=== PATIENT | male | born 1950 | race Caucasian/White ===

== ENCOUNTER 2017-04-12 09:03 | Emergency (ER) | payer SELFPAY ==
[~2017-04-12] VITALS: Ht 175.3 cm; Wt 120.0 kg
[2017-04-12] MEDS ORDERED: PREDNISONE50 MG PO (09:39)
[2017-04-12] MEDS ORDERED: COLCHICINE0.6 M2 PO (09:39)
[2017-04-12 09:52] VITALS: BP 154/77
== END 2017-04-12 09:52 | disposition home or self-care (01) | DRG 554 ==
LOC: ED 09:03
DX: M10.9 Gout, unspecified (principal); M25.475 Effusion, left foot

== ENCOUNTER 2017-05-12 18:59 | Observation (INO) | payer BC ==
[~2017-05-12] VITALS: Ht 175.3 cm; Wt 159.0 kg
[~2017-05-12 18:59] MED LIST: COLCHICINE0.6 M2 PO; PREDNISONE50 MG PO
--- NOTE | 2017-05-12 19:18 | NUR ---
PT TAKEN STRAIGHT BACK TO ER ROOM 6
--- NOTE | 2017-05-12 19:19 | NUR ---
PT. WITH C/O HAVING A SYNCOPLE EPISODE X 2 1 TIME YESTERDAY AND 1 TIME TODAY. SKIN WARM AND DRY TO TOUCH, COLOR WNL, RESP. EVEN AND UNLABORED.
[2017-05-12 19:32] LABS: HEMATOCRIT 41.3 % (39.0-50.0); IMMATURE GRANULOCYTES 0.7 % (0.0-1.0); MEAN CELL VOLUME 97.6 fL CALC (80.0-100.0); MEAN CORPUSCULAR HGB 33.1 pG CALC (26.0-32.0); MEAN CORPUSCULAR HGB CONC 33.9 g/L CALC (32.0-36.0); NEUT# 5.87 thou/uL (1.82-7.42); RED BLOOD COUNT 4.23 mill/uL (4.70-6.10); RED CELL DISTRI WIDTH 13.2 % (11.5-15.5)
[2017-05-12 19:34] LABS: URINE BILIRUBIN - DIPSTICK NEGATIVE (NEGATIVE); URINE BLOOD DIPSTICK NEGATIVE (NEGATIVE); URINE COLOR YELLOW; URINE GLUCOSE - DIPSTICK NEGATIVE (NEGATIVE); URINE KETONE NEGATIVE (NEGATIVE); URINE LEUK ESTERASE NEGATIVE (NEGATIVE); URINE NITRITE - DIPSTICK NEGATIVE (Negative); URINE PH 5.5 (4.5-8.0); URINE PROTEIN - DIPSTICK NEGATIVE (NEG-TRACE); URINE SPECIFIC GRAVITY 1.025; URINE UROBILINOGEN - DIPSTICK 0.2 E.U./dL (0.2)
[2017-05-12 19:35] LABS: URINE CLARITY CLEAR
[2017-05-12 19:45] LABS: ALBUMIN 4.7 g/dL (3.2-5.0); BILIRUBIN, TOTAL 0.6 mg/dL (0.0-1.4); CREATININE 1.9 mg/dL (0.7-1.3); TOTAL PROTEIN 7.6 g/dL (6.3-8.2)
--- NOTE | 2017-05-12 20:09 | NUR ---
iv antihypertensive given as per md order.
[2017-05-12] MEDS ORDERED: ATENOLOL25 MG PO (20:27)
[2017-05-12] MEDS ORDERED: ZYRTEC10 M5 PO (20:29)
[2017-05-12] MEDS ORDERED: FLONASE AL50 MCG/AC1 (21:09)
--- NOTE | 2017-05-12 21:14 | NUR ---
MD IN ROOM TO DISCUSS CLINICAL FINDINGS, PT. VERBALIZED UNDERSTANDING. PT. ALSO MADE AWARE OF ADMISSION, VERBALIZED UNDERSTANDING.
--- NOTE | 2017-05-12 22:05 | NUR ---
Admission Note Report Given to: TRE FARNSWORTH Transported by: Wheelchair X Stretcher Transported with: X Nurse Transporter X Patent IV O2 X Commercial Account Executive
--- NOTE | 2017-05-12 22:06 | NUR ---
PT. TRANSFERED TO ID VIA STRETCHER. NO C/O.
--- NOTE | 2017-05-12 22:07 | NUR ---
FROM ER TO [facility] VIA STRETCHER, ACCOMPANIED BY RADHA ROBERTSON RN. AMBULATED TO BED WITH STEADY GAIT, REPORTS FEELING OF PRESSURE TO FRONTAL LOBE AND DRAIN SINUSES, STATES AT HOME TAKES ZYRTEC FOR SINUSES, RESP ARE EVEN AND UNLABORED ON ROOM AIR, DENIES DIZZINESS AT THIS TIME, BP UPON ARRIVAL 176/95, HR 80, RR 18, SPO2 98% ON ROOM AIR, WILL MEDICATE WITH BP MEDICATION PER ORDERS, EXPLAINED CALL PLUMMER SYSTEM, AND SAFETY MEASURES WELL PLAN OF CARE, VOICES UNDERSTANDING, ENTERING ROOM AT THIS TIME, BRINGING FOOD FROM [employer], EDUCATED ABOUT 2G OF SODIUM DIET, PT VERBALIZES UNDERSTANDING, CALL PLUMMER AT REACH, WILL MONITOR CLOSELY.
[2017-05-13 01:35] VITALS: BP 140/78
--- NOTE | 2017-05-13 02:24 | NUR ---
PT APPEARS TO BE SLEEPING QUIETLY, AWAKE, STATES "I WAS LYING ON MY SIDE AND I FELT A DIZZY SPELL WHEN TURNED TO THE OTHER SIDE IT WENT AWAY." ENCOURAGED TO CALL IF NEEDED, VOICES UNDERSTANDING, VSS, AFEBRILE, WILL CONTINUE TO MONITOR CLOSELY, REINFORCED SAFETY MEASURES.
[2017-05-13 03:45] VITALS: BP 147/89
--- NOTE | 2017-05-13 04:42 | NUR ---
PT APPEARS TO BE RESTING COMFORTABLY, VOICES NO COMPLAINTS, VSS, WILL CONTINUE WITH FREQUENTLY ROUNDS.
--- NOTE | 2017-05-13 06:05 | NUR ---
LAB TECHN IN PT ROOM DRAWING LAB SAMPLES; PT STATES "I'M HAVING ANOTHER SYNCOPE EPISODE." PT LYING IN SUPINE POSITION, DENIES BLURRED VISION, DESCRIBES IT IF THE ROOM WAS SPINNING, SYNCOPE EPISODE LASTED FOR ABOUT FOUR SECONDS. PT STATES HAD REPEATED EPISODES LAST NIGHT, ONLY LASTING FOR ABOUT 3-5 SECONDS, ENCOURAGED TO CALL IF NEEDED ASSISTANCED, FREQUENT ROUNDS MADE. NO DISTRESS NOTED DURING SYNCOPAL EPISODE.
[2017-05-13 06:37] LABS: CHOLESTEROL HDL RATIO 5.2 (<4.4 (CALC))
[2017-05-13 08:52] VITALS: BP 166/99
[2017-05-13 11:54] VITALS: BP 172/90
[2017-05-13 12:42] VITALS: BP 172/90
[2017-05-13] MEDS ORDERED: MEDDOSEPAK PO (13:26)
[2017-05-13] MEDS ORDERED: AMLODIPINE BESYL5 MG PO (13:26)
--- NOTE | 2017-05-13 14:21 | NUR ---
PT.MEDICATED W/ANTIBIOTIC THERAPY AND SOLU-MEDROL ORDERED. PT.DENIES ANY OTHER NEEDS, FRIEND AT BEDSIDE VISITING.
--- NOTE | 2017-05-13 16:05 | NUR ---
PT.IV REMOVED/SITE APPEARS HEALTHY AT THIS TIME. DISCHARGE PAPERWORK AND MEDICAITONS HAVE BEEN REVIEWED. PT.IS WAITING ON HIS TO PICK HIM UP. I INSTRUCTED PT.TO CALL WHEN HE IS READY TO GO DOWN.
--- NOTE | 2017-05-13 16:28 | NUR ---
Patient is being discharged. Pt was counseled on Amlodipine and Methylprednisolone. c
== END 2017-05-13 16:09 | disposition home or self-care (01) | DRG 149 ==
LOC: ED 18:59 → ED-I 19:55 → ED 19:55 → ED-I 20:55 → ED 21:13 → MS2 21:14
PROVIDERS: Emergency Medicine; ADMIT Internal Medicine; ATTEND Internal Medicine
DX: H81.12 Benign paroxysmal vertigo, left ear (principal); E78.5 Hyperlipidemia, unspecified; H91.93 Unspecified hearing loss, bilateral; I16.0 Hypertensive urgency; I12.9 Hypertensive chronic kidney disease with stage 1 through stage 4 chronic kidney disease, or unspecified chronic kidney disease; N18.2 Chronic kidney disease, stage 2 (mild); M10.9 Gout, unspecified; J32.9 Chronic sinusitis, unspecified; H61.23 Impacted cerumen, bilateral; F10.10 Alcohol abuse, uncomplicated
CPT/HCPCS: G0378

== ENCOUNTER 2022-08-23 14:25 | Emergency (ER) | payer OTHER ==
[~2022-08-23] VITALS: Ht 175.3 cm; Wt 115.6 kg
[~2022-08-23 14:25] MED LIST changes: +AMLODIPINE BESYL5 MG PO; +ATENOLOL25 MG PO; +FLONASE AL50 MCG/AC1; +MEDDOSEPAK PO; +ZYRTEC10 M5 PO
[2022-08-23] MEDS ORDERED: TOPROL XL200 MG PO (14:45)
[2022-08-23] MEDS ORDERED: COZAAR100 MG PO (14:46)
[2022-08-23] MEDS ORDERED: XARELTO20 MG PO (14:47)
[2022-08-23] MEDS ORDERED: DOXYCYCL HYC100 M4 PO (14:48)
[2022-08-23 14:55] VITALS: BP 179/123
== END 2022-08-23 15:00 | disposition home or self-care (01) | DRG 153 ==
LOC: ED 14:25
DX: J06.9 Acute upper respiratory infection, unspecified (principal); I10 Essential (primary) hypertension; M10.9 Gout, unspecified